=== PATIENT | male | born 1960 | race Two or more races ===

== ENCOUNTER 2025-05-12 09:35 | Day surgery (SDC) | payer BC, SELFPAY ==
[2025-04-21 13:10] VITALS: BMI 37.9
[2025-04-21 13:37] LABS: Hematocrit 40.3 % (39.0-52.0); Hemoglobin 12.6 g/dL (13.0-18.0); Mean Corp Hgb Conc. 31.3 g/dL (33.0-37.0); Mean Corpuscular Volume 83.1 fL (80.0-94.0); Nucleated Red Blood Cells % 0 % (-); Platelet Count 311 10^3/uL (130-400); Red Cell Dist. Width 16.5 % (11.5-14.5)
[2025-04-21 13:46] LABS: ALT (SGPT) 23 U/L (0-50); AST (SGOT) 27 U/L (17-59); Albumin 4.6 g/dl (3.5-5.0); Alkaline Phosphatase 69 U/L (38-126); Blood Urea Nitrogen 11 mg/dl (9-20); Calcium 9.3 mg/dl (8.4-10.2); Carbon Dioxide 28 mmol/L (22-30); Chloride 102 mmol/L (98-107); Estimated Creatinine Clearance 107 ml/min; Glucose 103 mg/dl (70-99); Magnesium 1.8 mg/dl (1.6-2.3); Potassium 4.4 mmol/L (3.5-5.1); Sodium 138 mmol/L (135-145); Total Protein 7.8 g/dl (6.3-8.2); eGFR > 60.00
[2025-04-21 13:56] LABS: INR 1.15; PT 15.0 Sec (11.4-14.6)
[2025-05-12] VITALS (15 sets, daily range): BP systolic 86–130; BP diastolic 47–79
[2025-05-12 09:37] LABS: Glucose - Point of Care 119 mg/dl (70-99)
[2025-05-12 11:02] LABS: ACT-LR - POC 211 Seconds (116-155)
[2025-05-12 11:16] LABS: ACT-LR - POC 258 Seconds (116-155)
[2025-05-12 11:24] LABS: Glucose - Point of Care 115 mg/dl (70-99)
--- NOTE | 2025-05-12 11:34 | ITS.CL.ABL ---
Cardiopulmonary Technician And Eeg Tech - Ablation
Ablation
Procedure Report:
ELECTROPHYSIOLOGY ABLATION STUDY
DATE:: May 12, 2025��������������������������REFERRING: Dr. Buzz Zepeda
INDICATION: Persistent supraventricular tachycardia in the form of atrial fibrillation.
HISTORY: See H and P.��As above
ANTIARRHYTHMIC DRUG: Metoprolol
PRE-PROCEDURE VENESSA: No atrial thrombus
PRESENTING RHYTHM: Atrial fibrillation
'TIME-OUT':��called and confirmed.
SEDATION/ANESTHESIA:��provided via the anesthesia department using general anesthesia (LMA).
INTRAVENOUS/ARTERIAL ACCESS:
Right femoral venous -8Fr
Left femoral venous - 8 Fr, 6 Fr
Kiajui-wz-ebyff suture bilaterally
Ultrasound guidance for bilateral femoral vein access was utilized by me to obtain access with demonstration of normal anatomy
CHADS-VASC Score:
HAS-Bled Score
PROCEDURE:
1.��A decapolar CS catheter was placed within the CS for mapping and pacing.��This was also used as the reference catheter for the 3-D map.
2. The intracardiac ultrasound catheter was positioned in the RA to identify the FO for targeting of transseptal puncture, assist��in identification of the pulmonary vein ostia, monitoring pre and post ablation pulmonary vein flow velocities,
monitoring for 'bubble' formation during RF application as a sign of thermal injury,��and to monitor for pericardial effusion during mapping and ablation procedure.���Left atrial size, LV ejection fraction, and pulmonary vein flows were monitored
pre and post ablation procedure. The other valves were inspected and found to be free of significant regurgitation or stenosis.
3.��Half of the calculated heparin bolus was administered prior to the first transeptal puncture.��Transseptal puncture was performed to diagnose RA and LA pressure so that safety of LA mapping and ablation could be further assessed, and to access
the left atrium and pulmonary veins for mapping and ablation.��This entailed advancing an 16.8 Azeri RF wire, sheath with dilator into the superior vena cava and withdrawing both (monitoring intracardiac ultrasound, fluoroscopy and tip pressure)
with the tip oriented toward the atrial septum.��The fossa ovalis was engaged (indicated by sudden displacement of the sheath tip as well as tenting of the fossa seen on intracardiac ultrasound).��Left atrial access required a pass with the
Brockenbrough needle extended.��Left atrial catheter position was confirmed by pressure monitoring (RA mean pressure 2 mm Hg and LA mean presure 10 mm Hg post procedure 10 mmHg), LA saturation (99%),��as well as fluoroscopy.��The sheath was advanced
over the dilator and positioned in the left atrium.��The remainder of the calculated heparin bolus was administered and heparin was
infused to maintain ACT at 300 -350 seconds throughout the case.
4.��RA pacing was performed via the proximal decapolar poles and LA pacing was performed via the distal decapolr poles.
5. A quadrapolar catheter was first positioned at the His position for His Bundle recording which was tagged via the 3-D Navex sytem, and then passed to the RVA for RV pacing and recording.
6. The Penta spline and grid catheter placed in each of the LIPV, LSPV, RSPV and the RIPV.��
7.��Next, a 3-D map was created using Navex.���A 3-D reconstructed CT image was compared to the 3-D Navex map to assist in anatomic interpretation, mapping and ablation.��The CT image and the NavX image were fused.
8. 58 lesions were given to the left atrium. All of in basket poses to the left pulmonary veins rendering entrance block. Atrial fibrillation persisted and a roof posterior wall and floor lines were given the left atrium rendering entrance block
on the roof posterior wall and floor of the left atrium. Atrial fibrillation persisted and the patient was converted to sinus rhythm. Periods of sinus rhythm with multifocal atrial tachycardia were noted. Marked vacillation and cycle length were
noted. This trended towards sinus rhythm throughout the remainder of the procedure. EP study demonstrated no additional inducible tachyarrhythmias.
The patient was converted from atrial fibrillation after the ablation as above with 1 300 J synchronized biphasic shock.
9. Normal sinus node AV node function noted.
TOTAL FLOURO TIME: 13.6 minutes
152 mGy
TOTAL RF DURATION: 0 minutes
REVERSAL OF HEPARIN: 35 mg of protamine, slow IV administration
COMPLICATIONS:
None
Intracardiac US shows no pericardial effusion post ablation.
SUMMARY:��
Complex left atrial mapping and ablation.
Isolation of the pulmonary veins and the roof posterior wall and floor of the left atrium. All this was performed during atrial fibrillation the patient was converted to sinus rhythm. Entrance and exit block was confirmed in all 4 pulmonary veins
and the posterior wall.
RECOMMENDATIONS:
1. Ambulate 4 hours
2. Resume anticoagulation
3.� Increase metoprolol to 25 mg twice daily
4.� Consider same-day discharge
Copy to: Dr. Buzz Zepeda
[2025-05-12 12:41] LABS: Glucose - Point of Care 97 mg/dl (70-99)
[2025-05-12] MEDS: TOPROL XL 25 MG PO (13:05)
--- NOTE | 2025-05-12 14:19 | W.PN.UPDATE ---
Update Note
Progress Note Update
64 yo male s/p PVI (same day). He denies cp, sob, meghan clears, EKG SR occ PAC's, b/l groins c/d/i no HT< soft. He will resume Eliquis tonight. We will increase metoprolol 25mg twice daily. Activity restrictions reviewed. He will f/u Dr. Zepeda in 1
mo. He is for d/c home after 430p if groin stable and voiding.
== END 2025-05-12 16:45 | disposition home or self-care (01) ==
LOC: CATH 09:35
PROVIDERS: ATTENDING PHYSICIAN Internal Medicine Cardiovascular Disease; FAMILY PHYSICIAN Family Medicine; OTHER PHYSICIAN Internal Medicine Interventional Cardiology
DX: I48.19 Other persistent atrial fibrillation (principal); I47.19 Other supraventricular tachycardia; I44.4 Left anterior fascicular block; J45.909 Unspecified asthma, uncomplicated; E11.9 Type 2 diabetes mellitus without complications; Z79.84 Long term (current) use of oral hypoglycemic drugs; Z79.85 Long-term (current) use of injectable non-insulin antidiabetic drugs; K21.9 Gastro-esophageal reflux disease without esophagitis; H81.10 Benign paroxysmal vertigo, unspecified ear; D64.9 Anemia, unspecified; E66.9 Obesity, unspecified; Z68.37 Body mass index [BMI] 37.0-37.9, adult; N52.9 Male erectile dysfunction, unspecified; Z79.899 Other long term (current) drug therapy; Z79.01 Long term (current) use of anticoagulants; I49.1 Atrial premature depolarization; Z95.0 Presence of cardiac pacemaker; I25.2 Old myocardial infarction
CPT/HCPCS: C1732; C1769; C1892; C1759; C1894; C1730; 36415; 75572; 80053; 82962; 83735; 85025; 85347; 85610; 86850; 86900; 86901; 93005; 93656; 93657; C1733; C1766; Q9967